=== PATIENT | male | born 1970 | race Two or more races ===

== ENCOUNTER 2023-02-12 00:48 | Emergency (ER) | payer BC ==
[~2023-02-12] VITALS: Ht 177.8 cm; Wt 79.4 kg
[2023-02-12] MEDS ORDERED: ZESTRIL10 M1 (01:04)
[2023-02-12] MEDS ORDERED: CEPHALEXIN500 MG PO (05:06)
[2023-02-12] MEDS ORDERED: KETO10TA2 PO (05:06)
== END 2023-02-12 05:15 ==
LOC: ER 00:48
DX: S01.511A Laceration without foreign body of lip, initial encounter (principal); S69.91XA Unspecified injury of right wrist, hand and finger(s), initial encounter; W05.2XXA Fall from non-moving motorized mobility scooter, initial encounter; Y93.9 Activity, unspecified; Y92.9 Unspecified place or not applicable; Y99.9 Unspecified external cause status